=== PATIENT | female | born 1985 | race Caucasian/White ===

== ENCOUNTER 2016-10-01 09:53 | Inpatient (IN) | payer BC ==
--- OUTSIDE RECORDS SUMMARY | 2016-10-01 09:58 | XMS REPORT | Continuity of Care Document ---
:1985 Author Organization [facility] ([facility]) [place] [address] Phone [phone] Care Team Providers Name Role Phone Provider, No-Primary Care Primary Care Provider Unavailable Source Comments This disclosure is being made pursuant to the Care Everywhere program, applicable federal and state laws, and may not contain all informaitonavailable regarding this patient.[facility] ([facility]) Active Allergies and Adverse Reactions No Known Allergies Current Medications Prescription Sig. Disp. 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 05/12/2016 Previous section 05/12/2016 Vaginal delivery following previous section, delivered 05/12/2016 Currently Estimated Date of Delivery Comments Yes 11/21/2016 Based on Last Menstrual Period Most Recent Encounters Date Type Specialty Providers Description 09/29/2016 Hospital Encounter Obstetrics Kaley Mayen Dx: Monochorionic DO diamniotic twin gestation in second trimester 09/29/2016 Office Visit Maternal Kaley Mayen Chief Comp: Patient Medicine DO Reported Reason For Visit 09/15/2016 Hospital Encounter Obstetrics Brendan Rivas Dx: Monochorionic MD Esvin diamniotic twin gestation in second trimester 09/15/2016 Office Visit Maternal Brendan Rivas Chief Comp: Patient Medicine MD Esvin Reported Reason For Visit 09/01/2016 Hospital Encounter Obstetrics Kaley Mayen Dx: Monochorionic DO diamniotic twin gestation in second trimester 09/01/2016 Office Visit Maternal Kaley Mayen Dx: Monochorionic Medicine DO diamniotic twin gestation in third trimester (Primary Dx) 08/18/2016 Office Visit Maternal Shira Oscar I, Chief Comp: Patient Medicine MD Reported Reason For Visit 08/18/2016 Hospital Encounter Obstetrics Shira Oscar I, Dx: Monochorionic MD diamniotic twin gestation in second trimester 08/04/2016 Hospital Encounter Obstetrics Kaley Mayen, Dx: Twin , DO antepartum 08/04/2016 Office Visit Maternal Kanika Rich Dx: Monochorionic Natalie De Anda MD diamniotic twin Tiarra Kaley A, gestation in second DO trimester (Primary Dx) 07/21/2016 Office Visit Maternal Brendan Rivsa Dx: Monochorionic Medicine MD Esvin diamniotic twin gestation in second trimester (Primary Dx) 07/21/2016 Hospital Encounter Obstetrics Brendan Rivas Dx: Twin , L, antepartum 07/07/2016 Hospital Encounter Obstetrics Kaley Mayen, Dx: Twin , DO antepartum 07/07/2016 Office Visit Maternal Kaley Mayen, Dx: Previous Medicine DO section (Primary Dx) Social History Tobacco Use Types Packs/Day Years Used Date Never Smoker Alcohol Use Drinks/Week oz/Week Comments No 0 Standard drinks or equivalent 0.0 Last Filed Vital Signs Vital Sign Reading Time Taken Blood Pressure 129/72 05/12/2016 1:26 PM CASE COORDINATOR Pulse 96 05/12/2016 1:26 PM CASE COORDINATOR Temperature 37.4 C (99.3 F) 05/12/2016 1:26 PM CASE COORDINATOR Respiratory Rate - - Height 1.549 m (5' 0.98") 05/12/2016 1:26 PM CASE COORDINATOR Weight 69.7 kg (153 lb 10.6 oz) 05/12/2016 1:26 PM CASE COORDINATOR Body Mass Index 29.05 05/12/2016 1:26 PM CASE COORDINATOR Oxygen Saturation - - Plan of Care Date Type Specialty Providers Description 10/13/2016 Appointment Obstetrics Chief Comp: Patient Reported Reason For Visit 10/13/2016 Appointment Maternal Medicine Chief Comp: Patient Reported Reason For Visit 10/27/2016 Appointment Obstetrics Chief Comp: Patient Reported Reason For Visit 10/27/2016 Appointment Maternal Medicine Chief Comp: Patient Reported Reason For Visit 11/10/2016 Appointment Obstetrics Chief Comp: Patient Reported Reason For Visit 11/10/2016 Appointment Maternal Medicine Chief Comp: Patient Reported Reason For Visit Health Maintenance Due Date Last Done Comments Hepatitis B Vaccine (1 of 3 - Primary Series) 1986 Tdap Vaccine 1997 Lipid Disorder Screening 2004 MMR Vaccine 2004 Td Vaccine 2004 Varicella Vaccine (1 of 2 - Adult - No Evidence of 2004 Immunity) Cervical Cancer Screening 2016 Influenza Vaccine: Seasonal (Season Ended) 2017 Results from Last 3 Months FRONT OFFICE REPRESENTATIVE/ DIAGNOSIS ULTRASOUND (09/15/2016 3:40 PM)Only the most recent of6 resultswithin the time period is included. Narrative Obstetric Ultrasound Report Testing Referral from: [facility] [address] [facility] [address] [phone] OB Clinic ivF/ Endocrine PATIENT INFORMATION: Name: STANLEY CURIEL#: [id number] Age:31 y/oExam Date: 09/15/2016 :1985Visit #: 9 LMP:02/15/2016Location: Diagnosis & Treatment Unit # Fetuses: 2 INDICATION:[place]-di twins, TTTS check. DATING: Assigned GA GA by LMP(LMP) MARISOL 30 3/7 wks 30 3/7 wk11/21/16 PRESENTATION/CORD/PLACENTA/CERVIX: Presentation: Fetus A:Cephalic Fetus B:Cephalic Placenta: Fetus A:Anterior, Fundal Fetus B:Anterior, Fundal AMNIOTIC FLUID VOLUME: Fetus A NORMALSubjective AF Volume: Normal.Maximum Vertical Pocket:53 mm Fetus B NORMALSubjective AF Volume: Normal.Maximum Vertical Pocket:77 mm COMMENTS: I attest to having personally viewed the images and my comments and impression are as follows: The exam was limited due to the late gestational age. Monochorionic, diamniotic twin gestation. The exam was limited to twin to twin transfusion syndrome evaluation. Appropriate amniotic fluid around each twin. There is no evidence of TTTS. The stomach and bladder were visualized on each twin. A follow up appointment was scheduled in [address] Dr Rivas discussed the ultrasound findings with the patient. Thank you for the opportunity to care for your patient. Dr. Brendan Rivas MD ([id number]) Sales Inspector: Brii Sweeney RDMS, RVT Procedure Note Juan, Incoming Imaging Results - MonSep 21, 2016 12:56 PM CDT Obstetric Ultrasound Report Testing Referral from: Dr. Chilango Hicks [facility] Department of Obstetrics &Gynecology [address] [place] [address] [address] [facility] [address] [place] [id number] [place], [place] [phone] OB Clinic IVF/ Endocrine PATIENT INFORMATION: Name: STANLEY RODRIGUEZ MR#: [id number] Age: 31 y/o Exam Date: 09/15/2016 : 1985 Visit #: 9 LMP: 02/15/2016 Location: Diagnosis & Treatment Unit # Fetuses: 2 INDICATION: [place]-di twins, TTTS check. DATING: Assigned GA GA by LMP (LMP) MARISOL 30 3/7 wks 30 3/7 wks 11/21/16 PRESENTATION/CORD/PLACENTA/CERVIX: Presentation: Fetus A:Cephalic Fetus B:Cephalic Placenta: Fetus A:Anterior, Fundal Fetus B:Anterior, Fundal AMNIOTIC FLUID VOLUME: Fetus A NORMAL Subjective AF Volume: Normal. Maximum Vertical Pocket: 53 mm Fetus B NORMAL Subjective AF Volume: Normal. Maximum Vertical Pocket: 77 mm COMMENTS: I attest to having personally viewed the images and my comments and impression are as follows: The exam was limited due to the late gestational age. Monochorionic, diamniotic twin gestation. The exam was limited to twin to twin transfusion syndrome evaluation. Appropriate amniotic fluid around each twin. There is no evidence of TTTS. The stomach and bladder were visualized on each twin. A follow up appointment was scheduled in [address] weeks to check growth. Dr Rivas discussed the ultrasound findings with the patient. Thank you for the opportunity to care for your patient. Dr. Brendan Rivas MD ([id number]) Sales Inspector: Brii Sweeney RDMS, RVT
--- OUTSIDE RECORDS SUMMARY | 2016-10-01 09:58 | XMS REPORT | Continuity of Care Document ---
:1985 Author Organization [facility] [place] [address] Care Team Providers Name Role Phone Unavailable Primary Care Provider Unavailable Source Comments This disclosure is being made pursuant to the [employer] program and maynot contain all information available regarding this patient.[facility] Active Allergies and Adverse Reactions Not on File Current Medications Be aware that medications may not be up to date as of this document. Alwaysverify current medications with the patient. Not on file Active Problems Not on file Immunizations Name Dates Previously Given Next Due Influenza Split 03/24/2009 Social History Tobacco Use Types Packs/Day Years Used Date Never Assessed Plan of Care Health Maintenance Due Date Last Done Comments Tetanus/Pertussis (1 - Tdap) 2005 Pap Smear 2007 Influenza Immunization (#1) 2016 03/24/2009 Results from Last 3 Months Not on file
[2016-10-01] MEDS ORDERED: BETAMETH ACET/BETAMET SOD PHOS 6 MG/ML VIAL IM STA (10:32)
[2016-10-01] MEDS ORDERED: NIFEdipine 10 MG CAPSULE PO STA (10:32)
[2016-10-01] MEDS ORDERED: RINGERS SOLUTION,LACTATED 1,000 ML IV PRN ×2 (10:33→10:34)
[2016-10-01 10:45] VITALS: BP 121/82
--- OUTSIDE RECORDS SUMMARY | 2016-10-01 10:49 | XMS REPORT | Continuity of Care Document ---
:1985 Author Organization [facility] ([facility]) [place] [address] Phone [phone] Care Team Providers Name Role Phone Provider, No-Primary Care Primary Care Provider Unavailable Source Comments This disclosure is being made pursuant to the Care Everywhere program, applicable federal and state laws, and may not contain all informaitonavailable regarding this patient.[facility] ([facility]) Active Allergies and Adverse Reactions No [...] Recent Encounters Date Type Specialty Providers Description 10/01/2016 Hospital Encounter Women's Health Chief Comp: Patient Reported Reason For Visit 10/01/2016 Telephone Obstetrics Faith Matos MD 10/01/2016 Hospital Encounter Patient Services Shay Stevens MD 09/29/2016 Hospital Encounter Obstetrics Kaley Mayen Dx: Monochorionic DO diamniotic twin gestation in second trimester 09/29/2016 Office Visit Maternal Kaley Mayen Chief Comp: Patient Medicine DO Reported Reason For Visit 09/15/2016 Hospital Encounter Brendan Vega Dx: Monochoriomeaghan Mcallister MD diamniotic twin gestation in second trimester 09/15/2016 Office Visit Maternal Brendan Rivas Chief Comp: Patient Medicine MD Esvin Reported Reason For Visit 09/01/2016 Hospital Encounter Obstetrics Kaley Mayen Dx: Monochorionic DO diamniotic twin gestation in second trimester 09/01/2016 Office Visit Maternal Kaley Mayen A, Dx: Monochorionic Medicine DO diamniotic twin gestation in third trimester (Primary Dx) 08/18/2016 Office Visit Maternal Shira Oscar I, Chief Comp: Patient Medicine MD Reported Reason For Visit 08/18/2016 Hospital Encounter Shira Gardiner I, Dx: Monochoriomeaghan BOOKER diamniotic twin gestation in second trimester 08/04/2016 Hospital Encounter Obstetrics Kaley Mayen, Dx: Twin , DO antepartum 08/04/2016 Office Visit Maternal Kanika Rich Dx: Monochorionic Medicine MD Adilson diamniotic twin Tiarra Kaley A, gestation in second DO trimester (Primary Dx) 07/21/2016 Office Visit Maternal Brendan Rivas Dx: Monochorionic Medicine MD Esvin diamniotic twin gestation in second trimester (Primary Dx) 07/21/2016 Hospital Encounter Brendan Vega Dx: Twin , MD Esvin antepartum 07/07/2016 Hospital Encounter Obstetrics Kaley Mayen, Dx: Twin , DO antepartum 07/07/2016 Office Visit Maternal Kaley Mayen, Dx: Previous Medicine DO section (Primary Dx) Social History Tobacco Use Types Packs/Day Years Used Date Never Smoker Alcohol Use Drinks/Week oz/Week Comments No 0 Standard drinks or equivalent 0.0 Last Filed Vital Signs Vital Sign Reading Time Taken Blood Pressure 129/72 05/12/2016 1:26 PM CREW TEAM MEMBER Pulse 96 05/12/2016 1:26 PM CREW TEAM MEMBER Temperature 37.4 C (99.3 F) 05/12/2016 1:26 PM CREW TEAM MEMBER Respiratory Rate - - Height 1.549 m (5' 0.98") 05/12/2016 1:26 PM CREW TEAM MEMBER Weight 69.7 kg (153 lb 10.6 oz) 05/12/2016 1:26 PM CREW TEAM MEMBER Body Mass Index 29.05 05/12/2016 1:26 PM CREW TEAM MEMBER Oxygen Saturation - - Plan of Care [...] Ended) 2017 Results from Last 3 Months HAND II TUBE BENDER/ DIAGNOSIS ULTRASOUND (09/15/2016 3:40 PM)Only the most recent of6 resultswithin the time period is included. Narrative Obstetric Ultrasound Report Testing Referral from: Dr. Chilango Hicks [facility]geonsDepartment of Obstetrics & Gynecology [address] [place], [place] [phone] OB Clinic ivF/ Endocrine PATIENT INFORMATION: Name: STANLEY CURIEL#: [id number] Age:31 y/oExam Date: 09/15/2016 :1985Visit #: 9 LMP:02/15/2016Location: Diagnosis & Treatment Unit # Fetuses: 2 INDICATION:[place]-di twins, TTTS check. DATING: Assigned GA GA by LMP(LMP) MARISOL 30 3/7 wks 30 3/7 wks6/12/17 PRESENTATION/CORD/PLACENTA/CERVIX: Presentation: Fetus A:Cephalic Fetus B:Cephalic Placenta: [...] your patient. Dr. Brendan Rivas MD ([id number]) Miller Helper: Brii Sweeney RDMS, RVRoscoe Procedure Note Juan, Incoming Imaging Results - MonSep 21, 2016 12:56 PM CDT Obstetric Ultrasound Report Testing Referral from: Dr. Chilango Hicks [facility] Department of Obstetrics &Gynecology [address] [place], [place] [id number] [place], [id number] OB Clinic IVF/ Endocrine PATIENT INFORMATION: Name: STANLEY RODRIGUEZ MR#: [id number] Age: 31 y/o Exam Date: 09/15/2016 : 1985 Visit #: 9 LMP: 02/15/2016 Location: Diagnosis & Treatment Unit # Fetuses: 2 INDICATION: [place]-di twins, TTTS check. DATING: Assigned GA GA [...] your patient. Dr. Brendan Rivas MD ([id number]) Miller Helper: Brii Sweeney RDMS, RVT
--- OUTSIDE RECORDS SUMMARY | 2016-10-01 10:49 | XMS REPORT | Continuity of Care Document ---
:1985 Author Organization Info [place] [address] Care Team Providers Name Role Phone Unavailable Primary Care Provider Unavailable Source Comments This disclosure is being made pursuant to the [employer] program and maynot contain all information available regarding this patient.Info Active Allergies and Adverse Reactions Not on [...]
[2016-10-01] MEDS ORDERED: hydrOXYzine PAMOATE 25 MG CAPSULE PO PRN (10:51)
[2016-10-01 10:53] LABS: Hematocrit 32.3 % (37.0-47.0); Hemoglobin 10.9 gm/dL (12.5-16.0); Mean Cell Volume 81.6 fl (78-100); Mean Corpuscular Hemoglobin 27.5 pg (27-31); Mean Corpuscular Hgb Conc 33.7 g/dl (32-36); Mean Platelet Volume 11.2 fl (6.0-9.5); Neutrophil # 4.7 K/mm3 (1.3-6.0); Neutrophil % 68.7 % (42-75.0); Platelet Count 236 K/mm3 (150-450); Red Blood Count 3.96 M/mm3 (4.2-5.4); Red Cell Distribution Width 13.2 % (11.5-14.0); White Blood Count 6.9 K/mm3 (4.0-10.5)
[2016-10-01 11:12] LABS: Albumin * 2.3 gm/dl (3.4-5.0); Anion Gap 15.7 mmol/L (6.8-13.8); BUN/Creatinine Ratio 9.1 (9.0-21.6); Bilirubin, Total 0.2 mg/dL (0.0-1.1); Ca. Corrected For Albumin 9.9 mg/dL (8.4-10.2); Calcium * 8.9 mg/dL (7.9-10.9); Carbon Dioxide 22.3 mmol/L (24-32.6); Total Protein 6.5 gm/dL (6.2-8.2)
--- NOTE | 2016-10-03 13:10 | DS ---
(1) labor in third trimester Problem: Acute Qualifiers: labor delivery status: without delivery Qualified Code(s): O60.03 - labor without delivery, third trimester (2) Previous section complicating Problem: Acute (3) Twin , monochorionic diamniotic in third trimester Problem: Acute Description of Stay: patient with 1) mono-di twin and 2) prior c/s, currently at 32.5 weeks, presents with regular contractions. heart rate reassuring x 2. contractions q2-4 min. cervix closed. received betamethasone IM x 1 for lung maturity. procardia 10 mg po x 1 for tocolysis. vistaril 25 mg po x 1 for anexiety. transferred to [facility] in stable condition. Procedures Performed: none Discharge Disposition: [facility] Disposition: [facility] Condition: Stable Discharge Activity: Other - bed rest Discharge Diet: NPO Complete Home Medications List: Complete Home Medication List: Vit#96/Ferrous Fum/FA [ S] 1 tab PO DAILY 10/01/16
== END 2016-10-01 11:45 | disposition short-term general hospital (02) | DRG 778 ==
LOC: OBCLINIC 09:53 → OB 10:44
PROVIDERS: ADMIT Obstetrics & Gynecology; ATTEND Obstetrics & Gynecology
PROC: 4A1HXCZ Monitoring of Products of Conception, Cardiac Rate, External Approach (ICD-10-PCS; principal; 2016-10-01)
DX: O60.03 Preterm labor without delivery, third trimester (principal); O30.033 Twin pregnancy, monochorionic/diamniotic, third trimester; Z3A.33 33 weeks gestation of pregnancy